=== PATIENT | male | born 1950 | race Caucasian/White ===

== ENCOUNTER 2017-08-30 10:43 | Observation (INO) ==
--- NOTE | 2017-08-30 11:24 | Emergency Department Note ---
Disposition Clinical Impression: Acute kidney injury, Urinary retention, Renal calculi UTI (urinary tract infection) Qualifiers: Urinary tract infection type: site unspecified Hematuria presence: with hematuria Qualified Code(s): N39.0 - Urinary tract infection, site not specified Disposition: Admitted As Inpatient Condition: Fair Time of Disposition: 16:16 General Adult HPI - General Chief complaint: ED Urogenital-Male Stated complaint: UTI Time Seen by Provider: 08/30/17 10:52 Source: patient Limitations: no limitations Nursing Notes Reviewed: Yes Vital Signs Reviewed: Yes - History of Present Illness HPI Narrative: Patient is a 67-year-old male who complains of suprapubic tenderness and difficulty urinating. Patient states he was seen at [facility] 3 days ago and was placed on antibiotics for urinary tract infection. Patient states since then he has had a hard time urinating with pain with urination. Patient denies any blood in his urine and states he is only relieving a little amount of urine at a time. Patient has a history of diabetes. Pain Scale: 7 - Related Data Allergies Allergy/AdvReac Type Severity Reaction Status Date / Time No Known Allergies Allergy Verified 08/30/17 10:51 All systems ED: reviewed and negative except as stated. Review of Systems: As Per HPI Constitutional: Denies: fever Cardiovascular: Denies: chest pain, palpitations Respiratory: Denies: cough, dyspnea, wheezes Gastrointestinal: Reports: abdominal pain Genitourinary: Reports: urgency, dysuria, frequency. Denies: discharge Musculoskeletal: Denies: back pain Neurological: Denies: headache Endocrine: Reports: fatigue Past Medical History - Past Medical History Attestation: Yes The following information was validated with the patient. Medical history: Reports: diabetes Psychiatric history: Reports: no psych history - Social History Smoking Status: Current every day smoker Smokeless Tobacco Status: No Alcohol use: Reports: none Drug use: Reports: none Physical Exam 67-year-old male who is alert noted 3 and in no acute distress. 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 - General Limitations: no limitations General appearance: alert, in no apparent distress - Head Head exam: atraumatic, normocephalic, normal inspection - Eye Eye exam: Present: normal appearance, PERRL, EOMI - ENT ENT exam: normal exam, normal oropharynx, mucous membranes moist - Neck Neck exam: Present: normal inspection, full ROM, trachea midline - Respiratory Respiratory exam: Present: normal lung sounds bilaterally. Absent: wheezes - Cardiovascular Cardiovascular exam: Present: regular rate, normal rhythm, normal heart sounds - Abdominal Exam Abdominal exam: Present: soft, tenderness, distention (Suprapubic distention). Absent: Non-Tender, guarding, rebound, rigidity Abdominal tenderness: Present: suprapubic - Rectal Exam Drupal Architect present during exam: Yes Rectal exam: Present: normal inspection, normal rectal tone, normal prostate. Absent: tenderness, prostate tenderness, prostate enlargement - Extremities Exam Extremities exam: Present: normal inspection, full ROM. Absent: tenderness, pedal edema Course - Consultations Consultation #1: Dr. Hood the hospitalist has accepted patient for admission Time: 15:40 Vital Signs Temperature 97.6 F 08/30/17 10:47 Pulse Rate 79 08/30/17 10:47 Respiratory Rate 18 08/30/17 10:47 Blood Pressure 107/68 08/30/17 10:47 O2 Sat by Pulse Oximetry 97 08/30/17 10:47 Temperature 97.6 F 08/30/17 10:47 Pulse Rate 64 08/30/17 15:30 Respiratory Rate 16 08/30/17 16:05 Blood Pressure 110/69 08/30/17 16:05 O2 Sat by Pulse Oximetry 97 08/30/17 15:30 Oxygen Delivery Oxygen Delivery Room Air Medical Decision Making - [facility] Narrative Medical decision making narrative: Patient presented with recent history been treated with Anaprox for UTI presented suprapubic pain secondary to urinary retention. Patient's urine does not show UTI probably because of his antibiotic treatment. Patient does have a acute kidney injury. Plan is to start patient on IV antibiotics and admit for complicated UTI and a man with urinary retention and secondary acute kidney injury. CT abdomen and pelvis shows 6 mm nonobstructing renal calculi Patient started on IV hydration and ceftriaxone 1 g IV for treatment of UTI. Patient understands and agrees to treatment plan for admission. Patient was accepted for admission by Dr. Hood the hospitalist. - Lab Data Lab results reviewed: Yes I reviewed the patient's lab results. Lab results narrative: Short CBC 08/30/17 Range/Units 11:32 WBC 10.2 (4.3-11.1) K/mcL Hgb 16.2 (12.9-16.9) g/dL Hct 48.3 (37.5-50.1) % Plt Count 257 (140-400) K/mcL Neutrophils # 7.1 (1.6-8.9) K/mcL BMP 08/30/17 Range/Units 11:32 Sodium 137 (136-145) mEq/L Potassium 3.4 L (3.5-4.5) mEq/L Chloride 98 (98-109) mEq/L Carbon Dioxide 28 (19-29) mEq/L BUN 55 H (8-26) mg/dL Creatinine 1.84 H (0.72-1.25) mg/dL Glucose 161 H (70-99) mg/dL Calcium 9.9 (8.6-10.8) mg/dL Urine 08/30/17 Range/Units 11:30 Urine Color Yellow (Yellow) Urine Clarity Clear (Clear) Urine pH 5.5 (5.0-8.0) pH Units Ur Specific Topping 1.021 (1.010-1.025) Urine Protein Negative (Neg-Trace) mg/dL Urine Glucose (UA) >=1000 H (Normal) mg/dL Result diagrams: 08/30/17 11:32 08/30/17 11:32 - Radiology Data Radiology results reviewed: Yes I reviewed the patient's radiology results. Abdomen/Pelvis CT 08/30/17 11:25 IMPRESSION: 1. Nonspecific edema in the fat surrounding the urinary bladder. Correlate for signs of cystitis. 2. Nonobstructing 6 mm left renal calculus. No hydronephrosis. 3. Enlarged prostate gland. D/ / 08/30/2017 12:47:25 Yovany Hill MD / Melody Hand Interpreting Provider: Yovnay Hill MD - EKG Data EKG #1 EKG attestation: Yes I reviewed and interpreted this EKG. EKG results narrative: EKG taken today shows no ST elevations and depressions in any leads. Normal sinus rhythm at a rate of 70 bpm. EKG shows normal: sinus rhythm Rate: normal Rhythm: PVC's (1) Attestation Statement - Attestation Attestation: I, Zay Owne DO, examined this patient [id number] and my medical decision-making was reviewed with Dr. Nahid Jhaveri, Resident Physician. I agree with the documented findings, disposition and treatment plan as described except to the extent set forth below. Please see my progress notes for details.
--- NOTE | 2017-08-30 11:36 | Emergency Department Note ---
START Narrative - START START: 67-year-old male seen and examined at the time of arrival. See history of present illness. Complaint today is for continuation of lower abdominal pressure and dysuria. Patient has no specific history from what he describes the past. He seen an outside facility and started on antibiotic Bactrim for urinary tract infection. Patient has been taking the medication for several days and has no other issues at this point. Denies chest pain shortness of breath headache vision changes nausea vomiting or diarrhea. Denies any fevers or chills. Physical exam is otherwise unremarkable. Patient is up ambulatory around the emergency room without any distress. Lungs are clear heart is regular. Abdomen is soft nontender nondistended with no guarding no rigidity. He does have some suprapubic discomfort and a palpable bladder at this time. Bedside ultrasound completed showing a postvoid residual volume of 140 mL of fluid. Patient has not had any definitive evaluation or workup for his abdominal symptoms or issue. Patient will have CT imaging of the abdomen at this point as well as repeat urinalysis CBC and chemistry. Patient has no other initial concerning presentation of this point denies any trauma or injuries has no acute findings on abdominal evaluation. Once his workup is completed we will check to make sure that the urine is still infected and if it is we will change antibiotic regimen this point. Patient otherwise no distress. Vital signs are reviewed and are stable. See detailed documentation of physical exam, medical intervention, medical decision making, disposition and the resident physician's note. [id number] Patient found to have acute kidney insufficiency with CT findings concerning for cystitis with inflammation around the bladder itself and enlarged prostate. Prostatitis could potentially be on the differential rectal examination will be completed for pain on symptom presentation. IV antibiotics were started as needed. She will most likely need admission secondary to acute kidney insufficiency. Otherwise his workup has been relatively benign. Rectal examination to be completed. He does not have diffuse tenderness on exam. Will be admitted for acute kidney insufficiency and urinary tract infection with cystitis on CAT scan.
[2017-08-30 11:38] LABS: Bilirubin,Urine Negative (Negative); Blood,Urine Trace (Negative); Clarity,Urine Clear (Clear); Color,Urine Yellow (Yellow); Glucose,Urine (UA) >=1000 mg/dL (Normal); Ketones,Urine Negative (Negative); Leukocyte Esterase,Urine Negative (Negative); Nitrite,Urine Negative (Negative); PH,Urine 5.5 pH Units (5.0-8.0); Protein,Urine Negative (Neg-Trace); Specific Gravity,Urine 1.021 (1.010-1.025); Urobilinogen,Urine Normal (Normal)
[2017-08-30 11:41] LABS: Hematocrit 48.3 % (37.5-50.1); Hemoglobin 16.2 g/dL (12.9-16.9); Mean Corpuscular HGB Conc 33.5 g/dL (31.6-35.5); Mean Corpuscular Hemoglobin 28.8 pg (28.0-33.3); Mean Corpuscular Volume 85.8 fL (83.0-100.0); Mean Platelet Volume 9.7 fL (9.4-12.4); Platelet Count 257 K/mcL (140-400); Red Blood Count 5.63 M/mcL (4.19-5.50); Red Cell Distribution Width 14.6 % (11.5-14.5)
[2017-08-30 11:41] LABS: Bacteria,Urine None Seen per hpf (None-Few); RBC,Urine 0-3 per hpf (0-3)
[2017-08-30 11:52] LABS: Squamous Epithelial Cell,Urine Moderate per lpf (None-Few)
[2017-08-30 11:53] LABS: Calcium 9.9 mg/dL (8.6-10.8); Potassium 3.4 mEq/L (3.5-4.5)
[2017-08-30 12:02] LABS: Lymphocytes # 1.4 K/mcL (0.6-4.6); Monocytes # 1.6 K/mcL (0.0-1.3); Neutrophils # 7.1 K/mcL (1.6-8.9)
[2017-08-30 12:03] LABS: Platelet Estimate Normal (Normal)
[2017-08-30] MEDS ORDERED: 0.9 % Sodium Chloride 1,000 ML IVC ONE (14:16)
[2017-08-30] MEDS ORDERED: Ondansetron 4 MG/2 ML VIAL IVP PRN (16:28)
[2017-08-30] MEDS ORDERED: Naloxone 0.4 MG/ML INJ IVP PRN (16:28)
[2017-08-30] MEDS ORDERED: *HR* Morphine 2 MG/ML SYRINGE IVP PRN (16:28)
[2017-08-30] MEDS ORDERED: *HR* HYDROcodone/Acet 5/325 mg TABLET PO PRN (16:28)
[2017-08-30] MEDS ORDERED: Acetaminophen 325 MG TABLET PO PRN (16:28)
--- NOTE | 2017-08-30 16:59 | Internal Med History&Physical ---
<Jose R Art - Last Filed: 08/30/17 19:05> Date of Encounter: 08/30/17 Time of Encounter: 16:00 Assessment and Plan (1) Cystitis Current visit: Yes Status: Acute Patient presents with cystitis (diagnosed by [facility] last week) versus prostatitis. CT of abd/pelvis shows nonspecific edema in the fat surrounding the urinary bladder correlating signs cystitis. Enlarged prostate gland. Will continue IV ceftriaxone 1,000 mg daily that was started in the ED. IV fluids for current FREDY. Flomax 0.8 mg daily for BPH. Order to obtain records from [facility] for culture and sensitivity for UTI dx. Will adjust abx coverage based on C&S results. Cardoza catheter placed for urinary retention/ difficulty/pain. Urology consult ordered and discussed with Dr. Beyer. (2) Urinary retention Current visit: Yes Status: Acute Patient reports urinary retention and difficulty with urination, weak stream. painful urination. CT of the abd/pelvis today shows nonspecific edema in the fat surrounding urinary bladder correlate for signs of cystitis. Nonobstructing 6 mm left renal calculus with no hydronephrosis. Enlarged prostate gland. Bladder scan in ED showed 140-150 residual. Bladder scans PRN. Cardoza catheter to be inserted. Patient receiving IV fluids for FREDY. Flomax 0.8 mg daily. Urology consult ordered. Monitor I&O and daily weight. Treating with IV ceftriaxone for cystitis. (3) Enlarged prostate Current visit: Yes Status: Acute CT of abd/pelvis today shows enlarged prostate. Patient denies hx of enlarged prostate or prostate issues. PSA ordered. Flomax 0.8 mg daily ordered. (4) Acute kidney injury Current visit: Yes Status: Acute Acute kidney injury. Patient denies any hx of CKD or renal problems prior. IV fluids @ 125 mL/HR. Urology consult ordered and discussed with Dr. Beyer. (5) Hypokalemia Current visit: Yes Status: Acute Acute hypokalemia with potassium level of 3.4 on admission. PO potassium 40 mEq ONCE ordered. Monitor follow-up labs for potassium level. (6) HTN (hypertension) Current visit: Yes Status: Chronic Hx of chronic HTN. Monitor patient and VS and continue Qualifiers: Hypertension type: essential hypertension Qualified Code(s): I10 - Essential (primary) hypertension (7) HLD (hyperlipidemia) Current visit: Yes Status: Chronic Hx of chronic HLD. Lipid panel ordered in a.m. labs. Continue patient's statin. Qualifiers: Hyperlipidemia type: pure hypercholesterolemia Qualified Code(s): E78.00 - Pure hypercholesterolemia, unspecified; E78.0 - Pure hypercholesterolemia (8) Diabetes Current visit: Yes Status: Chronic Hx of diabetes controlled with oral antihyperglycemic medications. Will hold patient's oral medication and administer low-dose correction insulin sliding scale with hypoglycemic protocol. Blood glucose monitoring before meals at bedtime. A1c ordered in a.m. labs. Qualifiers: Diabetes mellitus type: type 2 Diabetes mellitus complication status: with unspecified complications Diabetes mellitus longterm insulin use: without terminal make up operator use Qualified Code(s): E11.8 - Type 2 diabetes mellitus with unspecified complications (9) Thyroid disease Current visit: Yes Status: Chronic Hx of chronic thyroid disease. Continue Synthroid. (10) Renal calculi Current visit: Yes Status: Chronic Non-obstructing 6 mm left renal calculus found with no hydronephrosis on CT of the abdomen/pelvis today. Stable. (11) DVT prophylaxis Current visit: Yes Status: Acute Heparin 5,000 units SQ Q8 for DVT prophylaxis. Monitor patient for signs of bleeding. Internal Medicine - H&P: HPI Chief complaint: Difficulty urintating/Painful urination Admitted From: Emergency Dept Plans for Post Hospital Care: Home History of present illness: Mr. Lares is a 67 year old male with medical history of diabetes controlled with oral antihyperglycemic medications, thyroid disease, HLD, and HTN presents from the ED with chief complaint of difficulty and painful urination. Patient reports symptoms began last Thursday. He states the pain feels like a pressure in his bladder. Also has pain in the penis when urinating. Patient was seen at [facility] last week and diagnosed with a UTI and placed on by mouth Bactrim. Patient states he took 4 days (8 pills) of Bactrim and stopped due to the medication making her feel tired and feeling of increased pressure in his bladder. Patient denies any shortness of breath, chest pain, palpitations, recent illness, fever, chills, nausea, vomiting, recent sexual activity, changes in vision, lightheadedness, dizziness, abdominal pain, unusual bleeding , presyncope, or syncope. On admission, patient's vital signs include temperature of 97.6F, heart rate of 64 bpm, respiratory rate of 16, BP of 109/68 , and SPO2 of 97% on room air. Pertinent abnormal labs include potassium of 3.4 , BUN of 55, creatinine 1.84, GFR 37, BUN/creatinine ratio 30, glucose of 161. Initial UA negative for culture. CT of the abdomen/pelvis without contrast shows nonspecific edema in the fat surrounding the urinary bladder which correlates for signs of cystitis. Nonobstructing 6 mm left renal calculus with no hydronephrosis. Enlarged prostate gland. Assessment: Patient alert and oriented 3 and states that he is only experiencing mild pressure in the suprapubic area. Abdomen is soft and nontender and nondistended with no guarding or rigidity. Suprapubic area is not painful to palpation. Heart is RRR and lungs are clear bilaterally on auscultation. Patient is hemodynamically stable and reports no acute distress. Information obtained from patient, chart review, and previous medical records. Mr. Lares is at high risk for further renal dysfunction based on his current FREDY and difficulty in voiding, enlarged prostate, and co-morbidities and he will be placed as observation status. Time spent with patient >40 minutes. Past Med Surg Social Fam HX - Past Medical History Source: patient Medical history: diabetes, hyperlipidemia, hypertension, thyroid disease Psychiatric history: no psych history - Past Surgical History Surgical History: orthopedic, other (Left ankle repair for broken ankle) - Social History Smoking Status: Current every day smoker Packs per day: 1 PPD Smokeless Tobacco Status: No Alcohol use: none Drug use: none Occupational status: employed Current living situation: Home Activity Level: Independent ambulation Recent Out of Country Travel Within the Last 8 Weeks: No Exposure or Possible Exposure to Illness During Travel: No - Family History Father Race: Family Member Ethnicity: Non- Living Status: Age at : 78 Cause of : Old age Hx Family Medical Disorders: No Mother Race: Family Member Ethnicity: Non- Living Status: Cause of : Suicide Hx Family Medical Disorders: No Brother History Unknown: Yes Race: Family Member Ethnicity: Non- Living Status: Still Living Sister Race: Family Member Ethnicity: Non- Living Status: Still Living Hx Family Endocrine Disorder: Yes (DM) Internal Medicine - H&P: Meds 3 Allergy/AdvReac Type Severity Reaction Status Date / Time No Known Allergies Allergy Verified 08/30/17 10:51 All Systems PM: A 10-system review of systems was performed and is negative for pertinent findings except as documented above in the HPI. - Constitutional Constitutional: no chills, no fever(s), no night sweats - EENT Eyes: no change in vision, no discharge, no pain, no photophobia Ears: no ear discharge, no ear pain, no tinnitus Nose, mouth and throat: no dysphagia, no nasal discharge, no neck pain, no sore throat - Breasts Breasts: as per HPI - Cardiovascular Cardiovascular ROS IM: no chest pain, no diaphoresis, no dyspnea, no lightheadedness, no palpitations, no syncope - Respiratory Respiratory: no cough, no dyspnea, no wheezing, no excessive phlegm production - Gastrointestinal Gastrointestinal: as per HPI, other (Suprapubic pressure), no abdominal pain, no diarrhea, no hematemesis, no hematochezia, no melena, no nausea, no vomiting - Genitourinary Genitourinary ROS male: as per HPI, difficulty urinating, other (Pain in penis when urinating) - Musculoskeletal Musculoskeletal ROS IM: no numbness, no tingling - Integumentary Integumentary IM: no rash, no unusual bruising - Neurological Neurological ROS: no confusion, no convulsions, no focal weakness, no numbness, no tingling, no tremor(s) - Psychiatric Psychiatric: as per HPI - Endocrine Endocrine IM: as per HPI - Hematologic/Lymphatic Hematologic/Lymphatic: no easy bruising - Allergic/Immunologic Allergic/Immunologic: as per HPI - Constitutional Vitals: Temp Pulse Resp BP Pulse Ox 97.6 F 64 16 110/69 97 08/30/17 10:47 08/30/17 15:30 08/30/17 16:05 08/30/17 16:05 08/30/17 15:30 General appearance: Present: cooperative, A&O X 3, pleasant, no acute distress, obese, answers questions appropriately - Head Head exam: Present: atraumatic, normocephalic - Eye Eye exam: Present: PERRL, conjuntiva pink, sclera anicteric Pupils: Present: PERRL - ENT ENT exam: Present: normal exam, normal external ear exam - Neck Neck exam general surgery: Present: normal inspection, supple, trachea midline - Respiratory Respiratory exam: Present: CTAB. Absent: accessory muscle use, rales, rhonchi, wheezes - Cardiovascular Cardiovascular exam: Present: RRR, +S1, +S2. Absent: diastolic murmur, gallop, rubs, systolic murmur - GI/Abdominal GI/Abdominal exam: Present: normal bowel sounds, soft, no peritoneal signs. Absent: distended, tenderness - Rectal Rectal exam: Present: deferred - exam: Present: normal inspection External exam: Present: normal external exam - Extremities Exam Extremities exam: Present: warm, radial pulses palpable and symmetrical. 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 Absent: pronater drift, facial droop - Psychiatric Psychiatric exam: Present: normal affect, normal mood - Skin Skin exam: Present: dry, intact Internal Med - H&P Results - Labs CBC & Chem 7: 08/30/17 11:32 08/30/17 11:32 - EKG Data EKG shows normal: sinus rhythm Rate: normal - EKG Data Prior EKG available for review: no Interpretation IM: normal EKG - Diagnostic Studies CT scan - abdomen Additional comments: Impressions Abdomen/Pelvis CT 08/30/17 11:25 IMPRESSION: 1. Nonspecific edema in the fat surrounding the urinary bladder. Correlate for signs of cystitis. 2. Nonobstructing 6 mm left renal calculus. No hydronephrosis. 3. Enlarged prostate gland. D/ / 08/30/2017 12:47:25 Yovany Hill MD / Melody Hand Interpreting Provider: Yovany Hill MD <Rey Hood - Last Filed: 08/30/17 19:57> Date of Encounter: 08/30/17 Internal Medicine - H&P: HPI History of present illness: Mr. Lares is a 67 year old male All Systems PM: A 10-system review of systems was performed and is negative for pertinent findings except as documented above in the HPI. - Constitutional Vitals: Temp Pulse Resp BP Pulse Ox 97.8 F 66 16 120/69 95 08/30/17 19:27 08/30/17 19:27 08/30/17 19:27 08/30/17 19:27 08/30/17 19:27 Internal Med - H&P Results - Labs CBC & Chem 7: 08/30/17 11:32 08/30/17 11:32 - Attending Attestation I independently obtained history and examined this patient and my medical decision-making was reviewed with the nurse practitioner, Jose R Art. I agree with the documented findings, disposition and treatment plan as described. My findings are summarized below: He reports difficulty urinating and dysuria as well as lower abdominal. Heart exam reveals regular S1-S2, no murmurs. Abdomen is soft nontender nondistended. Laboratory data was reviewed. Plan: We will treat with IV ceftriaxone for possible partially treated UTI. Start Flomax for BPH. Place Cardoza catheter for urinary retention due to high bladder residual possibly contributing to his renal failure as well as UTI. Consult urology.
[2017-08-30] MEDS: Pantoprazole 40 MG VIAL IVP SCH (18:16)
[2017-08-30] MEDS: 0.9 % Sodium Chloride 1,000 ML IVC SCH (18:17)
[2017-08-30] MEDS ORDERED: *HR* Heparin 5,000 UNIT/ML VIAL SQ SCH (22:00)
[2017-08-31 05:08] LABS: Basophils # 0.1 K/mcL (0.0-0.2); Basophils % 1.3 %; Eosinophils # 0.1 K/mcL (0.0-0.6); Eosinophils % 1.6 %; Hematocrit 43.1 % (37.5-50.1); Hemoglobin 14.6 g/dL (12.9-16.9); Immature Granulocytes % 1.8 % (0-4); Lymphocytes # 1.5 K/mcL (0.6-4.6); Lymphocytes % 19.6 %; Mean Corpuscular HGB Conc 33.9 g/dL (31.6-35.5); Mean Corpuscular Hemoglobin 29.3 pg (28.0-33.3); Mean Corpuscular Volume 86.5 fL (83.0-100.0); Mean Platelet Volume 10.2 fL (9.4-12.4); Monocytes # 1.1 K/mcL (0.0-1.3); Monocytes % 13.9 %; Neutrophils # 4.8 K/mcL (1.6-8.9); Platelet Count 239 K/mcL (140-400); Red Blood Count 4.98 M/mcL (4.19-5.50); Red Cell Distribution Width 14.8 % (11.5-14.5); Segmented Neutrophils % 61.8 %
[2017-08-31 05:10] LABS: INR 1.2
[2017-08-31 05:13] LABS: Activated Partial Thrombo Time 27.5 Seconds (26.0-36.0)
[2017-08-31 05:25] LABS: Alanine Aminotransferase 69 Units/L (0-55); Albumin 2.7 g/dL (3.5-5.0); Albumin/Globulin Ratio 0.7 (1.1-2.2); Alkaline Phosphatase 125 Units/L (38-126); Aspartate Amino Transferase 56 Units/L (5-34); BUN/Creatinine Ratio 31 (6-26); Bilirubin,Total 0.5 mg/dL (0.2-1.2); Calcium 9.1 mg/dL (8.6-10.8); Carbon Dioxide 25 mEq/L (19-29); Chloride 104 mEq/L (98-109); Chol/HDL Ratio 8.4 (0-4.9); Cholesterol 118 mg/dL (< 200); Globulin 3.9 g/dL (2.4-3.5); Glucose 175 mg/dL (70-99); HDL Cholesterol 14 mg/dL (40-59); Hemoglobin A1C 7.1 %; LDL Cholesterol,Calculated 74 mg/dL (0-99); Magnesium 2.1 mg/dL (1.6-2.6); Osmolality,Calculated 298 (280-300); Potassium 3.6 mEq/L (3.5-4.5); Sodium 137 mEq/L (136-145); Total Protein 6.6 g/dL (6.0-8.3); Triglycerides 152 mg/dL (< 150); eGFR For African Americans > 60 (> 60); eGFR For Non-African Americans 54 (> 60)
[2017-08-31 05:29] LABS: Blood Urea Nitrogen 41 mg/dL (8-26)
[2017-08-31 06:13] LABS: Platelet Estimate Normal (Normal); Reactive Lymphocytes Present (Not Present)
[2017-08-31] MEDS: *HR* Heparin 5,000 UNIT/ML VIAL SQ SCH ×3 (06:15→21:40)
[2017-08-31] MEDS: 0.9 % Sodium Chloride 1,000 ML IVC SCH ×3 (06:16→21:40)
[2017-08-31 06:17] LABS: Toxic Granulation Present (Not Present)
--- NOTE | 2017-08-31 07:02 | Urology - Consult Note ---
Date of Encounter: 08/31/17 Time of Encounter: 07:00 - Assessment and Plan (1) Acute kidney injury Current Visit: Yes Status: Acute Assessment and plan: Should improve with hydration and antibiotics. Watch with daily labs. If GFR does not improve I recommend a nephrology consult and Cardoza catheter placement (2) Enlarged prostate Current Visit: Yes Status: Acute Assessment and plan: I suspect that his recent UTI was a result of unmanaged BPH. Significant enlargement of the prostate on CT scan. Stranding around the prostate and bladder indicates lower urinary tract infection or prostatitis. I recommend starting tamsulosin and finasteride and continuing at discharge. (3) UTI (urinary tract infection) Current Visit: Yes Status: Acute Assessment and plan: Need outside culture. Will likely require 2-4 weeks of culture pacific by mouth antibiotics at discharge as this may have been prostatitis. No surgical intervention required at this time Qualifiers: Urinary tract infection type: site unspecified Hematuria presence: with hematuria Qualified Code(s): N39.0 - Urinary tract infection, site not specified; R31.9 - Hematuria, unspecified; R31.9 - Hematuria, unspecified Urology CN:HPI Consult date: 08/31/17 Reason for consult Urology: Other History of present illness: New patient to the urology service. Patient denies any urologic history but he appears to be a poor historian. States increasing difficulty urinating with fever and malaise. No flank pain. Lower back and abdominal discomfort. States he 's beginning to feel better since been in the hospital. Treated for a UTI at an outside facility prior to presentation to [facility] Med Surg Social [facility] HX - Past Medical History Medical history: diabetes, hyperlipidemia, hypertension, thyroid disease Psychiatric history: no psych history - Past Surgical History Surgical History: orthopedic, other (Left ankle repair for broken ankle) - Social History Smoking Status: Current every day smoker Packs per day: 1 PPD Smokeless Tobacco Status: No Alcohol use: none Drug use: none - Family History Father Race: Family Member Ethnicity: Non- Living Status: Age at : 78 Cause of : Old age Hx Family Medical Disorders: No Mother Race: Family Member Ethnicity: Non- Living Status: Cause of : Suicide Hx Family Medical Disorders: No Brother History Unknown: Yes Race: Family Member Ethnicity: Non- Living Status: Still Living Sister Race: Family Member Ethnicity: Non- Living Status: Still Living Hx Family Endocrine Disorder: Yes (DM) Medications and Allergies Amlodipine Besylate 10 mg PO DAILY 08/30/17 [History] Atorvastatin Calcium [Lipitor] 20 mg PO HS 08/30/17 [History] Benazepril/Hydrochlorothiazide [Lotensin Hct 20-25 mg Tablet] 1 each PO DAILY [History] Celecoxib [Celebrex] 100 mg PO DAILY 08/30/17 [History] Levothyroxine [Synthroid] 125 mcg PO 0630 08/30/17 [History] Linagliptin [Tradjenta] 5 mg PO DAILY 08/30/17 [History] glyBURIDE [GlyBURIDE] 5 mg PO DAILY 08/30/17 [History] 3 Allergy/AdvReac Type Severity Reaction Status Date / Time No Known Allergies Allergy Verified 08/30/17 10:51 Review of Systems - Constitutional fever(s), malaise - EENT Nose, mouth and throat: no dizziness - Cardiovascular no chest pain - Respiratory no cough - Gastrointestinal abdominal pain, nausea - Genitourinary change in urinary stream, difficulty urinating, dysuria - Musculoskeletal back pain - Integumentary no erythema - Neurological no confusion - Psychiatric no anxiety - Hematologic/Lymphatic no easy bleeding - Allergic/Immunologic no throat swelling Exam Initial Vital Signs Temp Pulse Resp BP Pulse Ox 97.6 F 79 18 107/68 97 08/30/17 10:47 08/30/17 10:47 08/30/17 10:47 08/30/17 10:47 08/30/17 10:47 - General physical appearance Present: no distress, chronically ill - Eyes Present: PERRL - ENT Present: decreased hearing - Neck Present: no masses - Respiratory Present: normal respiratory effort - Cardiovascular Cardiovascular exam IM: RRR - Abdomen Abdomen: Present: soft, suprapubic tenderness - Integumentary Present: no rash - Neurologic Present: normal coordination, other (Slurred speech) - Additional Findings Clear urine in the urinal Urology Results - Labs 08/31/17 04:19 08/31/17 04:19 Abnormal lab results RDW 14.8 % (11.5-14.5) H 08/31/17 04:19 Reactive Lymphocytes Present (Not Present) A 08/31/17 04:19 Toxic Granulation Present (Not Present) A 08/31/17 04:19 PT 13.0 Seconds (9.4-12.1) H 08/31/17 04:19 BUN 41 mg/dL (8-26) H D 08/31/17 04:19 Creatinine 1.31 mg/dL (0.72-1.25) H 08/31/17 04:19 Est GFR (Non-Af Amer) 54 (> 60) L 08/31/17 04:19 BUN/Creatinine Ratio 31 (6-26) H 08/31/17 04:19 Glucose 175 mg/dL (70-99) H 08/31/17 04:19 POC Glucose 135 (58-89) H 08/30/17 20:41 Hemoglobin A1c 7.1 % (-5.6) H 08/31/17 04:19 AST 56 Units/L (5-34) H 08/31/17 04:19 ALT 69 Units/L (0-55) H 08/31/17 04:19 Albumin 2.7 g/dL (3.5-5.0) L 08/31/17 04:19 Globulin 3.9 g/dL (2.4-3.5) H 08/31/17 04:19 Albumin/Globulin Ratio 0.7 (1.1-2.2) L 08/31/17 04:19 Triglycerides 152 mg/dL (< 150) H 08/31/17 04:19 HDL Cholesterol 14 mg/dL (40-59) L 08/31/17 04:19 Cholesterol/HDL Ratio 8.4 (0-4.9) H 08/31/17 04:19 Urine Glucose (UA) >=1000 mg/dL (Normal) H 08/30/17 11:30 Urine Blood Trace (Negative) H 08/30/17 11:30 Urine Microscopic WBC 3-5 per hpf (0-3) H 08/30/17 11:30 Ur Squamous Epith Cells Moderate per lpf (None-Few) H 08/30/17 11:30 Diabetes panel 08/31/17 08/31/17 Range/Units 04:19 04:19 Sodium 137 (136-145) mEq/L Potassium 3.6 (3.5-4.5) mEq/L Chloride 104 (98-109) mEq/L Carbon Dioxide 25 (19-29) mEq/L BUN 41 H D (8-26) mg/dL Creatinine 1.31 H (0.72-1.25) mg/dL Glucose 175 H (70-99) mg/dL Hemoglobin A1c 7.1 H ( - 5.6) % Calcium 9.1 (8.6-10.8) mg/dL AST 56 H (5-34) Units/L ALT 69 H (0-55) Units/L Alkaline Phosphatase 125 (38-126) Units/L Albumin 2.7 L (3.5-5.0) g/dL Triglycerides 152 H (< 150) mg/dL HDL Cholesterol 14 L (40-59) mg/dL Calcium panel 08/31/17 Range/Units 04:19 Calcium 9.1 (8.6-10.8) mg/dL Albumin 2.7 L (3.5-5.0) g/dL Pituitary panel 08/31/17 Range/Units 04:19 Sodium 137 (136-145) mEq/L Potassium 3.6 (3.5-4.5) mEq/L Chloride 104 (98-109) mEq/L Carbon Dioxide 25 (19-29) mEq/L BUN 41 H D (8-26) mg/dL Creatinine 1.31 H (0.72-1.25) mg/dL Glucose 175 H (70-99) mg/dL Calcium 9.1 (8.6-10.8) mg/dL Adrenal panel 08/31/17 Range/Units 04:19 Sodium 137 (136-145) mEq/L Potassium 3.6 (3.5-4.5) mEq/L Chloride 104 (98-109) mEq/L Carbon Dioxide 25 (19-29) mEq/L BUN 41 H D (8-26) mg/dL Creatinine 1.31 H (0.72-1.25) mg/dL Glucose 175 H (70-99) mg/dL Calcium 9.1 (8.6-10.8) mg/dL Total Bilirubin 0.5 (0.2-1.2) mg/dL AST 56 H (5-34) Units/L ALT 69 H (0-55) Units/L Alkaline Phosphatase 125 (38-126) Units/L Albumin 2.7 L (3.5-5.0) g/dL All other labs normal. Consult Discharge Plan - Plan Instructions: Urinary Tract Infection in Men (ED) Referrals: Yarelis Garcia CNP [Primary Care Provider] -
[2017-08-31] MEDS: Pantoprazole 40 MG VIAL IVP SCH (08:42)
[2017-08-31] MEDS: Celecoxib 100 MG CAPSULE PO SCH (08:42)
[2017-08-31] MEDS: Finasteride 5 MG TABLET PO SCH (08:42)
[2017-08-31] MEDS: amLODIPine 5 MG TABLET PO SCH (08:43)
[2017-08-31] MEDS: BENAZEPRIL PO SCH (08:46)
[2017-08-31] MEDS: HYDROCHLOROTHIAZIDE PO SCH (08:46)
--- NOTE | 2017-08-31 14:41 | Internal Med Progress Note ---
Date of Encounter: 08/31/17 Time of Encounter: 14:15 - Assessment and plan (1) Cystitis Current Visit: Yes Status: Acute Assessment and plan: Patient met with cystitis. He was seen and diagnosed upper hospital last week. CT abdomen/pelvis shows nonspecific edema in the fat surrounding urinary bladder correlating with signs of cystitis. Patient also was noted to have an enlarged prostate gland. We are attempting to obtain records from hospital for culture and sensitivity for UTI. We will adjust coverage based on this. Patient has a Cardoza catheter placed for urinary retention in dysuria. Neurology has been consulted, per urology, patient will likely require 2-4 weeks of culture specific by mouth antibiotics at discharge, as this may have been prostatitis. I appreciate urology's recommendations in consultation. Continue IV Rocephin 1000 mg daily Continue IV fluids for recurrent AK I Flomax 0.8 mg by mouth daily for BPH Continue to monitor labs and vital signs (2) Acute kidney injury Current Visit: Yes Status: Acute Assessment and plan: Patient is receiving IV hydration and antibiotics for UTI versus prostatitis. Continue to monitor labs. If it does not improve consult nephrology. (3) UTI (urinary tract infection) Current Visit: Yes Status: Acute Assessment and plan: Plan as above Qualifiers: Urinary tract infection type: site unspecified Hematuria presence: with hematuria Qualified Code(s): N39.0 - Urinary tract infection, site not specified; R31.9 - Hematuria, unspecified; R31.9 - Hematuria, unspecified (4) Renal calculi Current Visit: Yes Status: Chronic Assessment and plan: Noted on abdomen pelvis CT today. There is a nonobstructing 6 mm left renal calculus without hydronephrosis. (5) HTN (hypertension) Current Visit: Yes Status: Chronic Assessment and plan: Chronic. Continue home medications. Well controlled in inpatient setting. Qualifiers: Hypertension type: essential hypertension Qualified Code(s): I10 - Essential (primary) hypertension (6) Diabetes Current Visit: Yes Status: Chronic Assessment and plan: A1c is 7.1. Continue sliding scale insulin, Accu-Cheks before meals at bedtime , diabetic diet. 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 Continue home dose of Synthroid. (8) Enlarged prostate Current Visit: Yes Status: Acute (9) HLD (hyperlipidemia) Current Visit: Yes Status: Chronic Assessment and plan: Chronic. Continue home medications. Qualifiers: Hyperlipidemia type: pure hypercholesterolemia Qualified Code(s): E78.00 - Pure hypercholesterolemia, unspecified; E78.0 - Pure hypercholesterolemia (10) Hypokalemia Current Visit: Yes Status: Resolved (11) DVT prophylaxis Current Visit: Yes Status: Acute Assessment and plan: Heparin subcutaneous. - Time Spent With Patient less than 15 minutes - Subjective Interval history: Patient was seen and assessed at 2:15 PM. He is alert, awake. Patient has normal speech pattern is observed, however he is difficult to understand at times. He states his speech is normal for him. No focal deficits. He denies pain states he only has minimal pain now when he urinates. He denies headache, blurred vision, dizziness, nausea, stiff neck, abdominal pain, nausea vomiting diarrhea. - Constitutional Vitals: Temp Pulse Resp BP Pulse Ox 98.2 F 64 16 106/66 93 08/31/17 11:30 08/31/17 11:30 08/31/17 11:30 08/31/17 11:30 08/31/17 11:30 General appearance: Present: cooperative, A&O X 3, pleasant, no acute distress, obese, answers questions appropriately - Head Head exam: Present: atraumatic, normal inspection, normocephalic - Eye Eye exam: Present: normal appearance, conjuntiva pink, sclera anicteric - Neck Neck exam general surgery: Present: supple, trachea midline. Absent: lymphadenopathy, tenderness - Respiratory Respiratory exam: Present: chest wall tenderness, CTAB. Absent: accessory muscle use, rales, rhonchi, wheezes - Cardiovascular Cardiovascular exam: Present: RRR, +S1, +S2. Absent: diastolic murmur, gallop, rubs, systolic murmur - GI/Abdominal GI/Abdominal exam: Present: normal bowel sounds, soft, no peritoneal signs. Absent: distended, tenderness - Extremities Exam Extremities exam: Present: normal capillary refill, warm, radial pulses palpable and symmetrical. Absent: calf tenderness, cyanotic, pedal edema - Neurological Exam Neurological exam: Present: alert, oriented X3, no focal deficits. Absent: facial droop, speech deficit - Skin Skin exam: Present: dry, intact, normal color, warm. Absent: rash Internal Medicine: Result - Labs CBC & Chem 7: 08/31/17 04:19 08/31/17 04:19 Labs: Short CBC 08/31/17 Range/Units 04:19 WBC 7.7 (4.3-11.1) K/mcL Hgb 14.6 D (12.9-16.9) g/dL Hct 43.1 (37.5-50.1) % Plt Count 239 (140-400) K/mcL Neutrophils # 4.8 (1.6-8.9) K/mcL BMP 08/31/17 04:19 Sodium 137 Potassium 3.6 Chloride 104 Carbon Dioxide 25 BUN 41 H D Creatinine 1.31 H Glucose 175 H Calcium 9.1 Liver Function 08/31/17 Range/Units 04:19 Total Bilirubin 0.5 (0.2-1.2) mg/dL AST 56 H (5-34) Units/L ALT 69 H (0-55) Units/L Alkaline Phosphatase 125 (38-126) Units/L Albumin 2.7 L (3.5-5.0) g/dL - ABG Interpretation ABG results: PT/INR, D-dimer PT 13.0 Seconds (9.4-12.1) H 08/31/17 04:19 Consult Discharge Plan - Plan Instructions: Urinary Tract Infection in Men (ED) Referrals: Yarelis Garcia INGOT PASSER [Primary Care Provider] -
--- NOTE | 2017-08-31 17:00 | Electrocardiograph Report ---
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
[2017-09-01] MEDS: *HR* Heparin 5,000 UNIT/ML VIAL SQ SCH (05:57)
[2017-09-01] MEDS: 0.9 % Sodium Chloride 1,000 ML IVC SCH (05:57)
--- NOTE | 2017-09-01 06:48 | Event Note ---
Date of Encounter: 09/01/17 Time of Encounter: 06:47 urinary retention noted. continue catheter at discharge with followup in urology in 2 weeks for voiding trial.
[2017-09-01 07:53] VITALS: BP 134/74
[2017-09-01] MEDS: BENAZEPRIL PO SCH (09:28)
[2017-09-01] MEDS: Celecoxib 100 MG CAPSULE PO SCH (09:28)
[2017-09-01] MEDS: amLODIPine 5 MG TABLET PO SCH (09:28)
[2017-09-01] MEDS: HYDROCHLOROTHIAZIDE PO SCH (09:28)
[2017-09-01] MEDS: Finasteride 5 MG TABLET PO SCH (09:28)
[2017-09-01] MEDS: Pantoprazole 40 MG VIAL IVP SCH (09:28)
--- NOTE | 2017-09-01 10:11 | Discharge Summary ---
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9 - Hematuria, unspecified; R31.9 - Hematuria, unspecified - Discharge Medications Prescriptions: Benazepril HCl 20 mg PO DAILY #60 tablet Finasteride [Proscar] 5 mg PO DAILY #30 tablet levoFLOXacin [Levofloxacin] 500 mg PO DAILY #14 tablet Home Medications: Amlodipine Besylate 10 mg PO DAILY 08/30/17 [History] Atorvastatin Calcium [Lipitor] 20 mg PO HS 08/30/17 [History] Celecoxib [Celebrex] 100 mg PO DAILY 08/30/17 [History] Levothyroxine [Synthroid] 125 mcg PO 0630 08/30/17 [History] Linagliptin [Tradjenta] 5 mg PO DAILY 08/30/17 [History] glyBURIDE [GlyBURIDE] 2.5 mg PO BID 08/30/17 [History] Canagliflozin [Invokana] 100 mg PO DAILY 08/31/17 [History] Benazepril HCl 20 mg PO DAILY #60 tablet 09/01/17 [Rx] Finasteride [Proscar] 5 mg PO DAILY #30 tablet 09/01/17 [Rx] levoFLOXacin [Levofloxacin] 500 mg PO DAILY #14 tablet 09/01/17 [Rx] Allergies/Adverse Reactions: 3 Allergy/AdvReac Type Severity Reaction Status Date / Time No Known Allergies Allergy Verified 08/30/17 10:51 Procedures/tests Complete & Pending: Procedures Performed prior 72 hours Category Date Time Status EKG [ECG 12 lead ECG] [ECG] Stat Y 08/30/17 16:09 Completed Date of admission: 08/30/17 15:43 Primary care physician: Yarelis Garcia CNP Consults: 08/30/17 17:53 Consult to Urology [CONS] Routine Consulting Provider: Urology Antonietta Reason for Consult: Patient has one-week hx of difficulty/painful urination. Dx with UTI at [facility] last week with PO Bactrim. Patient disc after 4 days d/t way it made him feel. Symptoms worsened. Urinary retention of [address] of abd/pel shows nonspecific edema in the fat surrounding urinary bladder correlate for signs of cystitis. Nonobstructing 6 mm left renal calculus with no hydronephrosis. Enlarged prostate. Call Completed: Yes Discharging clinician: Jane Lynn Anticipated date of discharge: 09/01/17 - Patient Status Disposition: Home, Self-Care Condition: Good Functional capacity at discharge: independent ambulation Overall status at discharge: patient is progressing back to baseline - Discharge Instructions Instructions: Finasteride (By mouth), Levofloxacin (By mouth), Benazepril (By mouth), Urinary Retention in Men (GEN), Urinary Tract Infection in Men (DC) Follow Up With: Yarelis Garcia CNP [Primary Care Provider] - 09/16/17 10:45 am Beny Beyer MD [Partnered Physician] - 09/11/17 1:15 pm (10 days) - Diet and Activity Activity: increase activity as tolerated Diet: advance to your usual diet Hospital course: Mr. Lares is a 67 year old male patient with history of diabetes mellitus type 2, thyroid disease, hypertension, hyperlipidemia presented to the ER with complaints of difficulty and painful urination. He should not had recently been diagnosed with UTI and was started on Bactrim. Had taken about 4 days of treatment with Bactrim but began to feel tired with increased pressure on his bladder and so stopped taking this medication and came to the ER. In the ER, he was diagnosed with acute cystitis and prostatitis. CT scan of the abdomen and pelvis showed presence of nonobstructing 6 mL left renal calculus. Patient did have enlarged prostate gland. Urology was consulted and recommended treating the patient for cystitis and prostatitis. They recommended placing a Cardoza catheter and to follow up in the clinic. However patient refuses placement of Cardoza catheter and says that he has been urinating well since hospitalization. He does understand the risks of his problem recurring due to presence of prostate enlargement. He will however follow-up with urology in 1 week for further management. He will be discharged on oral antibiotics to complete treatment for cystitis and prostatitis. Patient did have acute kidney injury on presentation which is currently resolving. - Time Spent with Patient Total time spent providing and/or coordinating discharge services: Greater than 30 minutes (35 min) - Constitutional Vitals: Temp Pulse Resp BP Pulse Ox 97.6 F 66 17 134/74 95 09/01/17 07:49 09/01/17 07:49 09/01/17 07:49 09/01/17 07:49 09/01/17 07:49 General appearance: Present: cooperative, A&O X 3, pleasant, no acute distress, obese, answers questions appropriately - Respiratory Respiratory exam: Present: CTAB. Absent: accessory muscle use, rales, rhonchi, wheezes - Cardiovascular Cardiovascular exam: Present: RRR, +S1, +S2. Absent: diastolic murmur, gallop, rubs, systolic murmur - GI/Abdominal GI/Abdominal exam: Present: normal bowel sounds, soft, no peritoneal signs. Absent: distended, tenderness - Extremities Exam Extremities exam: Present: warm, radial pulses palpable and symmetrical. Absent : calf tenderness, cyanotic, pedal edema
== END 2017-09-01 11:47 | disposition home or self-care (01) ==
LOC: 3BNU 10:43 → EMEROO 10:43 → SUATTDRO 15:43 → 3BNU 16:42
PROVIDERS: ADMIT Internal Medicine; ATTEND Internal Medicine